=== PATIENT | male | born 1950 | race Caucasian/White ===

== ENCOUNTER 2016-08-22 18:13 | Inpatient (IN) ==
[2016-08-22] MEDS: 0.9 % Sodium Chloride 1,000 ML IVC SCH (22:38)
[2016-08-23] MEDS: Nicotine 14 MG PATCH.TD24 TD SCH ×2 (00:50→08:57)
[2016-08-23 05:43] LABS: Basophils # 0.1 K/mcL (0.0-0.2); Basophils % 0.9 %; Eosinophils # 0.6 K/mcL (0.0-0.6); Eosinophils % 6.8 %; Hematocrit 40.3 % (37.5-50.1); Hemoglobin 13.3 g/dL (12.9-16.9); Immature Granulocytes % 0.2 % (0-4); Lymphocytes # 2.7 K/mcL (0.6-4.6); Lymphocytes % 32.1 %; Mean Corpuscular Hemoglobin 30.7 pg (28.0-33.3); Mean Corpuscular Volume 93.1 fL (83.0-100.0); Mean Platelet Volume 9.5 fL (9.4-12.4); Monocytes # 0.9 K/mcL (0.0-1.3); Monocytes % 10.1 %; Neutrophils # 4.2 K/mcL (1.6-8.9); Platelet Count 224 K/mcL (140-400); Red Blood Count 4.33 M/mcL (4.19-5.50); Red Cell Distribution Width 14.5 % (11.5-14.5); Segmented Neutrophils % 49.9 %
[2016-08-23 05:57] LABS: Calcium 9.1 mg/dL (8.6-10.8); Potassium 4.2 mEq/L (3.5-4.5)
--- NOTE | 2016-08-23 07:32 | Vascular/Endovas Progress Note ---
Date of Encounter: 08/23/16 Time of Encounter: 07:29 - Assessment and plan (1) PAD (peripheral artery disease) Current Visit: Yes Status: Acute Exacerbation of left lower extremity symptoms to the point that he has lifestyle limiting claudication. Patient is admitted for revascularization of left lower extremity. (2) Tobacco abuse Current Visit: Yes Status: Chronic The patient is undergoing medical treatment for tobacco abuse (3) CAD (coronary artery disease) Current Visit: Yes Status: Chronic The patient has history of coronary artery disease. He has had a previous DE. He has had noninvasive testing as well as stress testing demonstrating a reduced ejection fraction of approximately 39% Qualifiers: Coronary Disease-Associated Artery/Lesion type: [place] artery [place] vs. transplanted heart: [place] heart Associated angina: without angina Qualified Code(s): I25.10 - Atherosclerotic heart disease of [place] coronary artery without angina pectoris - Subjective Interval history: Pepe Ch is a 66-year-old white male who was admitted last night for preoperative intravenous hydration. The patient has stage III to stage IV chronic kidney disease. The patient has severe lifestyle limiting claudication of the left lower extremity secondary to popliteal artery disease. He is being admitted for revascularization today. The patient had undergone a redo left hip replacement at an outside hospital in [place]. There were some type of perioperative complication and he was taken back to surgery as an emergency and had a emergent femoral-femoral bypass graft from the right to the left some years ago. Subsequent to this he is developed significant claudication in his leg. He was evaluated by myself via the outpatient clinic earlier this year. The reader of this note is recommended to review those notes in eCW which constituted his history and physical. As a brief summary has abnormal imaging studies an abnormal noninvasive testing. He now comes for revascularization of left lower extremity. The patient will undergo a formal exploration of left groin and an attempt will be made to perform an intraoperative endovascular intervention for the popliteal artery occlusion. If this is not successful we will then proceed on immediately to perform a left femoral to popliteal artery bypass graft. The patient is where the potential risks and benefits as well as palpitations and alternatives to this procedure. The patient wishes to proceed with the surgery as outlined. Vital Signs, Last 4 Hours Temp Pulse Resp BP Pulse Ox 08/23/16 07:09 97.9 F 63 14 106/64 98 - Physical Examination General: Present: Conversant, No Apparent Distress HEENT: Present: Normocephaly Neck: Absent: JVD Neuro: Present: Alert and responsive, No focal deficits noted Skin: Present: No rashes noted on visualized skin Results 08/23/16 04:18 08/23/16 04:18 Lab Results, Last 24 hours 08/23/16 08/23/16 04:18 04:18 WBC 8.5 Hgb 13.3 Hct 40.3 Plt Count 224 Sodium 141 Potassium 4.2 Chloride 108 Carbon Dioxide 27 BUN 26 Creatinine 1.98 H Glucose 85 Calcium 9.1 Consult Discharge Plan - Plan Referrals: Ghassan Medina, BIG DATA ENGINEER [Primary Care Provider] -
[2016-08-23] MEDS: Spironolactone 25 MG TABLET PO SCH (08:58)
[2016-08-23] MEDS: amLODIPine 5 MG TABLET PO SCH (08:58)
[2016-08-23] MEDS ORDERED: *HR* Acetylcysteine 20% 600 MG/3 ML ORAL SYRINGE PO SCH (09:00)
[2016-08-23] MEDS ORDERED: Nicotine 14 MG PATCH.TD24 TD SCH (09:00)
[2016-08-23] MEDS ORDERED: *HR* Etomidate 40 MG/20 ML VIAL IVP ONE (09:11)
[2016-08-23] MEDS ORDERED: Lidocaine -MPF 2% 2 ML VIAL ONE ×2 (09:11→13:28)
[2016-08-23] MEDS ORDERED: Ondansetron 4 MG/2 ML VIAL ONE ×2 (09:13→21:08)
[2016-08-23] MEDS ORDERED: Dexamethasone 4 MG/ML VIAL ONE (09:13)
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
[2016-08-23] MEDS ORDERED: *HR* FentaNYL (PF) 100 MCG/2 ML VIAL ONE ×3 (09:44→14:29)
[2016-08-23] MEDS: 0.9 % Sodium Chloride 1,000 ML IVC SCH (11:16)
[2016-08-23] MEDS ORDERED: ceFAZolin 2,000 MG in D5% in Water 100 ML IVPB ONE (12:00)
[2016-08-23] MEDS ORDERED: Heparin 1,000 UNITS/500 mL NS 1,000 ML ONE (12:46)
[2016-08-23] MEDS ORDERED: Heparin 1,000 UNITS/500 mL NS 500 ML ONE (13:01)
[2016-08-23] MEDS ORDERED: *HR* Rocuronium Bromide 50 MG/5 ML VIAL ONE (13:03)
[2016-08-23] MEDS ORDERED: *HR* Midazolam HCl 2 MG/2 ML VIAL ONE (13:05)
[2016-08-23] MEDS ORDERED: *HR* Phenylephrine 10 MG/ML VIAL ONE (13:22)
[2016-08-23] MEDS ORDERED: *HR* Heparin 5,000 UNIT/ML VIAL ONE ×2 (14:09→16:58)
[2016-08-23] MEDS ORDERED: *HR* HYDROmorphone 2 MG/ML SYRINGE ONE (14:54)
[2016-08-23] MEDS ORDERED: Acetaminophen IV 1,000 MG/100 ML INFUS..BTL IVPB ONE (19:57)
--- NOTE | 2016-08-23 20:09 | Electrocardiograph Report ---
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
--- NOTE | 2016-08-23 20:22 | Operative Note ---
Date of procedure: 08/23/16 Pre-op diagnosis: PAD/life style limiting claudication Post-op diagnosis: same Procedure: left leg angiogram left femoral-TibioPeroneal Trunk bypass with 6 mm PTFE Distaflo left TibioPeroneal trunk endarterecetomy left posterior tibial endarterectomy left posterior tibial patch angioplasty with left greater saphenous vein Complications: none Anesthesia: GETA Surgeon: Sheldon Wolf Estimated blood loss (cc): 300 Specimen: none Condition: stable Disposition: PACU Procedure in Detail: History Pepe Ch is a 66-year-old white male who was seen for severe left lower extremity claudication. Patient had abnormal physical exam with no palpable pulses beyond the groin and abnormal duplex scan. A CT angiogram was obtained which demonstrated occlusion of the popliteal artery. The posterior tibial artery appeared to be the dominant runoff. Of note the patient is status post a right to left femoral-femoral bypass graft. This was performed in [place] as an emergency after it undergone a redo left hip replacement and there is some type of intraoperative trauma and occlusion requiring emergency revascularization. Procedure After informed consent was obtained the patient was taken to the operating room. General endotracheal anesthesia was established with arterial line pressure monitoring. The abdomen groin and left lower extremity were then sterilely prepped and draped. A timeout protocol was observed. Dissection was then made of the left groin through the previous incision from his femoral- femoral bypass graft. Dissection was carried down to reveal and expose the femoral anastomotic area. An 18 H needle was then used to puncture the cord of the left femoral anastomosis. A Glidewire was then inserted and this was followed by a 5 [place] sheath and dilator. An intraoperative angiogram was then performed of the left lower extremity. Contrast was injected both through the 5 [place] sheath and then through the tip of a 65 cm long glide catheter which was placed in the above-knee popliteal artery. These images demonstrated an occlusion that appeared chronic of the popliteal artery. In addition however and in more detail and CT scan revealed there is also occlusion of the tibial peroneal trunk and anterior tibial artery. There was reconstitution of the posterior tibial artery and then a small and what appeared to be diseased peroneal artery as well. Attempts at passing a variety of wires through this chronic occlusion unsuccessful. Therefore an endovascular solution to the patient's problem was abandoned. Attention was then directed to direct revascularization. Dissection was then made in the [id number] popliteal artery to expose the below the knee popliteal artery and tibial peroneal trunk and the tibial bifurcation. This was a very tedious and long dissection. There is also a tremendous inflammatory response present with marked adherence of the surrounding veins to the arteries and a loss of all normal anatomic planes through this area. This led to a very tedious dissection. A number of crossing veins needed to be divided in order to expose the vessel which was difficult to do as the vessel was poorly mobile. Eventually the dissection was accomplished. Selective control was obtained of the peroneal and posterior tibial artery at the tibial bifurcation area. Heparin was administered in a dose of 5000 units. After a three-minute delay and arteriotomy was performed over the tibial peroneal trunk. This was then expanded with an 11 blade knife and Varela scissors. Evaluation of the area revealed significant plaque formation and occlusion. Therefore a formal endarterectomy was necessary of the tibial peroneal trunk including the orifice ease of the peroneal and posterior tibial arteries. After the endarterectomy was performed a bypass graft was created. A 6 mm PTFE Distaflo graft was selected. The length of the Distaflo fluted and accommodated the area of the tibial peroneal trunk endarterectomy. Therefore this fluted and of the graft with service in angioplasty site over the endarterectomized vessel. The tibial peroneal trunk anastomosis was then performed using 6-0 Prolene suture. After this was accomplished the graft which had been previously tunneled in a subsartorial location was anastomosis end of graft to side of the femoral would of the femoral-femoral bypass graft on the left side. Again this was performed with 6-0 Prolene suture. After appropriate backbleeding and flushing the graft was opened. The graft was pulsatile but no significant change was noted in the tibial circulation. Therefore further dissection was made of the tibial vessels distally. This was again a very tedious dissection due to the inflammatory changes. As the angiogram had demonstrated that the posterior tibial artery was the dominant flow attention was directed to the dissecting this vessel. The vessel was then dissected for a length of approximately 8 cm. Controls obtained of the vessel and its branches. The posterior tibial artery was then opened with 11 blade knife and Varela scissors. This was carried up to the edge of the anastomosis of the bypass graft. Residual atherosclerotic disease was identified. Then therefore a second isolated endarterectomy was performed of the left posterior tibial artery. This was performed to the proximal aspect of the vessel. After this was accomplished a 3 [place] Rin catheter was passed retrograde to ensure that it wouldn't easily pass into the graft and then the graft was released to demonstrate that there was pulsatile flow into the posterior tibial. With this assured a piece of greater saphenous vein was then harvested from the calf incision. He was then used as a patch angioplasty over the endarterectomized area of the proximal posterior tibial artery. This was sewn into position using 6-0 Prolene suture. After appropriate backbleeding and flushing the graft was then reopened and pulsatile flow was established and demonstrated into the posterior tibial artery. Strong biphasic Doppler signals identified at the ankle level with marked loss of signal with compression of the graft and anabaptism of a strong biphasic signal with the graft being open. This then reassured that the bypass graft was patent and functioning. The wounds were then irrigated and hemostasis achieved. The wounds were then closed in layers using absorbable suture. Dry sterile dressings were applied. The patient was extubated in the operating room. He was taken from the operating room to the recovery room in stable condition.
[2016-08-23] MEDS ORDERED: *HR* Labetalol 20 MG/4 ML SYRINGE IVP ONE (20:36)
[2016-08-23] MEDS: *HR* Labetalol 20 MG/4 ML SYRINGE IVP PRN ×2 (20:40→21:03)
[2016-08-23] MEDS: *HR* HYDROmorphone (PF) 1 MG/ML SYRINGE IVP PRN ×2 (20:52→21:04)
[2016-08-23] MEDS ORDERED: Ondansetron 4 MG/2 ML VIAL IVP ONE (21:07)
--- NOTE | 2016-08-23 22:16 | Anesthesia Evaluation Post Op ---
Date of Encounter: 08/23/16 Time of Encounter: 21:00 - Vital Signs Vital Signs: Vital Signs/O2 Sat/Glucose, Most Current Temp Pulse Resp BP Pulse Ox 08/23/16 21:37 97.9 F 84 14 153/75 94 08/23/16 21:27 97.8 F 80 14 156/76 97 08/23/16 21:17 73 16 161/79 96 08/23/16 21:07 78 14 162/77 96 08/23/16 20:57 98.6 F 84 18 173/83 95 08/23/16 20:47 80 22 165/110 93 08/23/16 20:37 117 22 172/107 100 08/23/16 20:27 98.1 F 90 18 189/131 95 - Lungs Lungs: Clear Ascult./Percussion - Airway Airway: Non-obstructed - Cardiovascular Regular Rate - Mental Status Mental Status: Alert & Oriented, Answers Appropriately - Pain Pain Scale: 1 - Nausea Vomiting Nausea Vomiting: Not Present - Hydration Hydration: Ice chips - Discharge PostOp Status: Transfer Patient to floor
[2016-08-23] MEDS ORDERED: Ondansetron 4 MG/2 ML VIAL IVP PRN (23:13)
[2016-08-23] MEDS ORDERED: *HR* OxyCODONE/APAP 5/325 TABLET PO PRN ×2 (23:14→23:15)
[2016-08-24] MEDS: Spironolactone 25 MG TABLET PO SCH ×4 (00:20→21:52)
[2016-08-24] MEDS: amLODIPine 5 MG TABLET PO SCH ×4 (00:20→21:52)
[2016-08-24] MEDS ORDERED: Acetaminophen 325 MG TABLET PO PRN (03:55)
[2016-08-24] MEDS ORDERED: Nitroglycerin 0.4 MG TAB.SUBL SL PRN (03:55)
[2016-08-24] MEDS ORDERED: *HR* Morphine 2 MG/ML SYRINGE IVP PRN ×2 (03:55)
[2016-08-24] MEDS ORDERED: Naloxone 0.4 MG/ML INJ IVP PRN (03:55)
[2016-08-24] MEDS ORDERED: *HR* HYDROcodone/Acet 5/325 mg TABLET PO PRN (03:55)
[2016-08-24] MEDS: *HR* Acetylcysteine 20% 600 MG/3 ML ORAL SYRINGE PO SCH ×2 (04:46→21:52)
[2016-08-24] MEDS: ceFAZolin 2,000 MG in D5% in Water 100 ML IVPB SCH ×3 (04:47→19:32)
[2016-08-24 05:38] LABS: Basophils % 0.1 %; Immature Granulocytes % 0.5 % (0-4); Mean Corpuscular HGB Conc 32.8 g/dL (31.6-35.5); Mean Corpuscular Hemoglobin 30.1 pg (28.0-33.3); Mean Corpuscular Volume 91.7 fL (83.0-100.0); Mean Platelet Volume 9.4 fL (9.4-12.4); Monocytes # 1.3 K/mcL (0.0-1.3); Monocytes % 9.3 %; Platelet Count 206 K/mcL (140-400); Red Blood Count 3.49 M/mcL (4.19-5.50); Red Cell Distribution Width 14.3 % (11.5-14.5); Segmented Neutrophils % 83.1 %
[2016-08-24 05:41] LABS: Hemoglobin 10.5 g/dL (12.9-16.9); Neutrophils # 11.5 K/mcL (1.6-8.9)
[2016-08-24 05:58] LABS: Calcium 8.5 mg/dL (8.6-10.8); Potassium 4.5 mEq/L (3.5-4.5)
--- NOTE | 2016-08-24 08:41 | Vascular/Endovas Progress Note ---
Date of Encounter: 08/24/16 Time of Encounter: 08:36 - Assessment and plan (1) PAD (peripheral artery disease) Current Visit: Yes Status: Acute Exacerbation of left lower extremity symptoms to the point that he has lifestyle limiting claudication. Patient is admitted for revascularization of left lower extremity. Patent left lower extremity bypass graft. Patient will need rehabilitative consultations which we ordered today. Patient also needed a walker. I anticipate the patient will not be ready for discharge today. (2) Tobacco abuse Current Visit: Yes Status: Chronic The patient is undergoing medical treatment for tobacco abuse (3) CAD (coronary artery disease) Current Visit: Yes Status: Chronic The patient has history of coronary artery disease. He has had a previous [place]. He has had noninvasive testing as well as stress testing demonstrating a reduced ejection fraction of approximately 39% Qualifiers: Coronary Disease-Associated Artery/Lesion type: [place] artery [place] vs. transplanted heart: [place] heart Associated angina: without angina Qualified Code(s): I25.10 - Atherosclerotic heart disease of [place] coronary artery without angina pectoris - Subjective Interval history: Mr. Ch is postoperative day #1 from a extensive left lower extremity reconstruction with bypass grafting and endarterectomy. The patient has no significant complaints this morning. He has ongoing issues with orthopedic concerns and has problems with his right lower extremity which limits his mobility. The patient does require redo right hip replacement. Vital Signs, Last 4 Hours Temp Pulse Resp BP Pulse Ox 08/24/16 07:45 98.1 F 82 17 126/89 98 - Physical Examination General: Present: Conversant, No Apparent Distress HEENT: Present: Atraumatic Cardiac: Present: Reg Rate and Rhythm Vascular: Present: Surgical incisions (Surgical incisions are clean and dry and covered with dressings.), Other (Patient has Doppler signals at the left posterior tibial and peroneal arteries) Results 08/24/16 05:15 08/24/16 05:15 Lab Results, Last 24 hours 08/24/16 08/24/16 05:15 05:15 WBC 13.8 H D Hgb 10.5 L D Hct 32.0 L Plt Count 206 Sodium 137 Potassium 4.5 Chloride 108 Carbon Dioxide 24 BUN 23 Creatinine 1.79 H Glucose 123 H Calcium 8.5 L Consult Discharge Plan - Plan Referrals: Ghassan Medina, NEIDA [Primary Care Provider] - 08/31/16 2:00 pm () Sheldon Wolf MD [Partnered Physician] - 09/12/16 8:45 am (This appointment is scheduled for Lisa )
[2016-08-24] MEDS: *HR* HYDROcodone/Acet 5/325 mg TABLET PO PRN ×4 (11:41→23:44)
[2016-08-24] MEDS: Nicotine 14 MG PATCH.TD24 TD SCH (12:51)
[2016-08-24] MEDS: Ondansetron 4 MG/2 ML VIAL IVP PRN (19:33)
[2016-08-24] MEDS ORDERED: rOPINIRole 0.25 MG TABLET PO SCH (21:00)
[2016-08-25] MEDS: *HR* HYDROcodone/Acet 5/325 mg TABLET PO PRN ×3 (04:23→12:25)
[2016-08-25] MEDS: amLODIPine 5 MG TABLET PO SCH (08:07)
[2016-08-25] MEDS: Spironolactone 25 MG TABLET PO SCH (08:07)
[2016-08-25] MEDS: Nicotine 14 MG PATCH.TD24 TD SCH (08:08)
[2016-08-25 11:10] VITALS: BP 120/83
--- NOTE | 2016-08-25 11:41 | Physician Discharge Referral ---
Home Health/Hosp Referral Info Attending Provider: Dr Wolf Provider in Charge Post Discharge: PCP - Diagnosis (1) PAD (peripheral artery disease) Priority: Primary Status: Acute (2) Tobacco abuse Priority: Secondary Status: Chronic (3) CAD (coronary artery disease) Priority: Secondary Status: Chronic (4) DJD (degenerative joint disease) of pelvis Priority: Secondary Status: Chronic - Respiratory Orders Smoking Cessation: Smoking cessation has been advised. For more information, call the [place] Tobacco Quit Line at 6-998-IDGE-NOW. 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 He is status post previous hip replacements. He has had significant impairment in his mobility and will eventually require repeat hip surgery.) - Transfer Medications Prescriptions: HYDROcodone/Acet 5/325 mg [W[place] 5-325 mg] 1 tab PO Q6H PRN #30 tab PRN Reason: Moderate Pain rOPINIRole [Requip] 0.25 mg PO HS #30 tab Home Medications: Spironolactone [Aldactone] 25 mg PO BID 08/22/16 [History] amLODIPine [Norvasc] 5 mg PO BID 08/22/16 [History] Clopidogrel [Plavix] 75 mg PO DAILY tab 08/25/16 [Rx] HYDROcodone/Acet 5/325 mg [[place] 5-325 mg] 1 tab PO Q6H PRN #30 tab 08/25/16 [Rx ] Nicotine Patch [Nicoderm] 14 mg TD DAILY 08/25/16 [Rx] Nitroglycerin 0.4 mg SL Q5M PRN 08/25/16 [Rx] rOPINIRole [Requip] 0.25 mg PO HS #30 tab 08/25/16 [Rx] Allergies/Adverse Reactions: Allergies Penicillins Allergy (Verified 08/28/15 20:29) Rash Certification: Further, I certify that my clinical findings support that this patient is homebound (i.e. absences from home require considerable and taxing effort and are for medical reasons or uatsdin services or infrequently or short duration when for other reasons) because: Homebound Reason: Patient requires assistance of a person or device to safely leave home, Post-surgery restriction and or conditions limit ability to leave home, Leaving home requires considerable and taxing effort due to condition Attestation: My signature below is to certify that this patient is under my care and that I, or nurse practitioner, or a physician's title i assistant working with me, has a face-to -face encounter with this patient.
--- NOTE | 2016-08-25 11:45 | Discharge Summary ---
Date of Encounter: 08/25/16 Time of Encounter: 11:43 - Discharge Diagnosis (1) PAD (peripheral artery disease) Priority: Primary Status: Acute Comments: Patient has severe left lower extremity symptoms with profound left leg claudication. Patient had a CT Lynette Alf preoperatively which indicated a popliteal artery occlusion. However at the time of surgery and intraoperative antrum was performed in an attempt to try to perform an endovascular intervention with balloon angioplasty of the popliteal. At that time the below the knee arterial lesions were found to be much more significant and severe. Not only was the below the knee popliteal occluded but as was also the tibial peroneal trunk and the anterior tibial artery. Peroneal artery was also diseased and the primary runoff was through the posterior tibial artery. Therefore he underwent a rather complex and tedious procedure in an attempt to try to improve the perfusion to the left lower extremity. (2) Tobacco abuse Priority: Secondary Status: Chronic Comments: Patient is using nicotine patches (3) CAD (coronary artery disease) Priority: Secondary Status: Chronic Comments: Patient is under medical treatment for his coronary artery disease and he did not have any periprocedural cardiac complications. Qualifiers: Coronary Disease-Associated Artery/Lesion type: [place] artery [place] vs. transplanted heart: [place] heart Associated angina: without angina Qualified Code(s): I25.10 - Atherosclerotic heart disease of [place] coronary artery without angina pectoris (4) DJD (degenerative joint disease) of pelvis Priority: Secondary Status: Chronic Comments: Patient has significant bilateral lower extremity degenerative joint disease primarily at the hip level. He is as having significant problems with the right hip and has difficulties ambulating. He had declined recommendation for [facility] placement for further rehabilitation. The patient will receive outpatient therapy with physical and occupational therapy at his home. - Discharge Medications Prescriptions: HYDROcodone/Acet 5/325 mg [[place] 5-325 mg] 1 tab PO Q6H PRN #30 tab PRN Reason: Moderate Pain rOPINIRole [Requip] 0.25 mg PO HS #30 tab Home Medications: Spironolactone [Aldactone] 25 mg PO BID 08/22/16 [History] amLODIPine [Norvasc] 5 mg PO BID 08/22/16 [History] Clopidogrel [Plavix] 75 mg PO DAILY tab 08/25/16 [Rx] HYDROcodone/Acet 5/325 mg [[place] 5-325 mg] 1 tab PO Q6H PRN #30 tab 08/25/16 [Rx ] Nicotine Patch [Nicoderm] 14 mg TD DAILY 08/25/16 [Rx] Nitroglycerin 0.4 mg SL Q5M PRN 08/25/16 [Rx] rOPINIRole [Requip] 0.25 mg PO HS #30 tab 08/25/16 [Rx] Allergies/Adverse Reactions: Allergies Penicillins Allergy (Verified 08/28/15 20:29) Rash Procedures/tests Complete & Pending: Procedures Performed prior 72 hours Category Date Time Status ECG 12 lead ECG [ECG] Routine Y 08/23/16 04:20 Completed Date of admission: 08/22/16 18:13 Primary care physician: Ghassan Medina CNP Consults: 08/24/16 08:03 Consult to Occupational Therapy [CONS] Routine Comment: Evaluate, develop and implement POC Reason for Consult: DC PLANNING Consult to Physical Therapy [CONS] Routine Comment: Evaluate, develop and implement POC Reason for Consult: DC PLANNING 08/24/16 11:08 Consult to Group Sales Coordinator [CONS] Routine Reason for SW Consult: HOME HEALTH Procedure(s) Performed: Left femoral to tibial peroneal trunk bypass graft with PTFE Left tibial peroneal trunk endarterectomy Left posterior tibial artery endarterectomy Left posterior tibial artery patch angioplasty with greater saphenous vein Left lower extremity angiogram Discharging clinician: Sheldon Wolf Anticipated date of discharge: 08/25/16 - Patient Status Disposition: Home Health Service Condition: Fair Functional capacity at discharge: uses cane/walker Overall status at discharge: patient is progressing back to baseline - Discharge Instructions Follow Up With: Ghassan Medina CNP [Primary Care Provider] - 08/31/16 2:00 pm () Sheldon Wolf MD [Partnered Physician] - 09/12/16 8:45 am (This appointment is scheduled for [place] ) Additional Instructions: Keep left lower extremity incisions dry for total of 5 days following surgery. Left lower extremity should be elevated when seated to reduce left lower extremity edema. Resume usual home medications. New prescriptions will be given for narcotics and for Requip for nocturnal leg cramps and restless leg syndrome. Patient will be given referrals for outpatient occupational therapy and physical therapy. - Diet and Activity Activity: ambulate only with your walker, as per physical therapy, increase activity as tolerated Diet: advance to your usual diet - Hospital Course Hospital course: Mr. Ch is a 66 year old male With severe lower extremity occlusive disease. CT scan underestimated the amount of disease and at the time of surgery an angiogram was performed in hopes of performing an endovascular procedure. This was not feasible and so therefore the patient ended up receiving a very complicated and complex reconstruction. The vein was inadequate and he required a synthetic graft to the tibial peroneal trunk and then a formal exploration and endarterectomy of the proximal posterior tibial artery with vein patch angioplasty. The patient had a uneventful vascular recovery with Doppler signals identified 3 at the ankle. Due to his difficulties with mobility from his degenerative joint disease the patient required an additional day of hospitalization. Recommendations for placement at an extended care facility for further rehabilitation were refused by the patient and so therefore he is going to receive home therapy. The patient was felt fit for discharge on postoperative day #2. Directions in regards to his diet and exercise and medications and wound care were given to the patient prior to discharge. - Time Spent with Patient Total time spent providing and/or coordinating discharge services: Exam Vital Signs, Last 4 Hours Temp Pulse Resp BP Pulse Ox 08/25/16 11:19 85 08/25/16 11:09 98.5 F 90 17 120/83 94 08/25/16 08:10 98 General: Present: Conversant, No Apparent Distress HEENT: Present: Atraumatic Neck: Absent: JVD Abdomen: Present: Soft Vascular: Present: Color/Temperature (Left foot is warm and pink. Patient has Doppler signals 3 at the left ankle.), Surgical incisions (Clean and dry) Skin: Present: No rashes noted on visualized skin
[2016-08-25] MEDS: Ondansetron 4 MG/2 ML VIAL IVP PRN (12:32)
== END 2016-08-25 15:30 | disposition home health service (06) | DRG 253 ==
LOC: 2NNU 18:13 → EDSTATUS 08-23 10:25
PROVIDERS: ADMIT Surgery Vascular Surgery; ATTEND Surgery Vascular Surgery

== ENCOUNTER 2020-01-14 06:12 | Inpatient (IN) ==
[~2020-01-14 06:12] MED LIST: ceFAZolin 1,000 MG, Sodium Chloride IRRigation 1,000 ML IR ONE
[2020-01-14] MEDS ORDERED: Lidocaine -MPF 2% 2 ML VIAL ONE ×2 (06:41→09:30)
[2020-01-14] MEDS ORDERED: Heparin 1,000 UNITS/500 mL 500 ML ONE (06:41)
[2020-01-14] MEDS ORDERED: Ondansetron 4 MG/2 ML VIAL ONE (06:41)
[2020-01-14] MEDS ORDERED: *HR* Rocuronium Bromide 50 MG/5 ML VIAL ONE ×2 (06:41→10:05)
[2020-01-14] MEDS ORDERED: Dexamethasone 4 MG/ML VIAL ONE (06:41)
[2020-01-14] MEDS ORDERED: *HR* Propofol 200 MG/20 ML VIAL IVP ONE (06:42)
[2020-01-14] MEDS ORDERED: *HR* Phenylephrine 10 MG/ML VIAL ONE (06:42)
[2020-01-14] MEDS ORDERED: *HR* Heparin 5,000 UNIT/ML VIAL ONE (06:42)
[2020-01-14] MEDS ORDERED: *HR* Midazolam HCl 2 MG/2 ML VIAL ONE (06:42)
[2020-01-14] MEDS ORDERED: *HR* FentaNYL (PF) 100 MCG/2 ML VIAL ONE ×2 (06:43→11:31)
[2020-01-14] MEDS ORDERED: Ringers Solution, Lactated 1,000 ML IVC SCH ×2 (06:45→07:00)
[2020-01-14] MEDS ORDERED: Ondansetron 4 MG/2 ML VIAL IVP PRN ×2 (06:53→15:19)
[2020-01-14] MEDS ORDERED: *HR* OxyCODONE Immed Rel 5 MG TABLET PO PRN (06:53)
[2020-01-14] MEDS ORDERED: Clindamycin 900 MG/50 ML 900 MG/50 ML IV.SOLN IVPB ONE (06:55)
[2020-01-14] MEDS ORDERED: Sodium Bicarbonate 150 MEQ in D5% in Water 1,000 ML IVC SCH (07:00)
[2020-01-14] MEDS ORDERED: Heparin 1,000 UNITS/500 mL 1,500 ML ONE (07:08)
[2020-01-14] MEDS ORDERED: *HR* Remifentanil 1 MG VIAL IVP ONE ×2 (07:09→11:29)
[2020-01-14] MEDS ORDERED: Lidocaine -MPF 4% 5 ML AMPUL ONE (07:13)
[2020-01-14] MEDS ORDERED: NiCARdipine 2.5 MG/10 ML Syringe IVPB ONE (07:18)
[2020-01-14] MEDS ORDERED: EPHEDrine 50 MG/ML VIAL ONE (10:18)
[2020-01-14 10:44] LABS: ABG Base Excess -2 mEq/L (-2 to 3); ABG Chloride 107 mEq/L (98-107); ABG Glucose 122 mg/dL (60-95); ABG HCO3 23 mEq/L (21-27); ABG Oxygen Saturation 100 % (95-98); ABG PCO2 40 mmHg (35-45); ABG PH 7.37 pH Units (7.32-7.45); ABG PO2 174 mmHg (85-104); ABG TCO2 24 mEq/L (20-26)
[2020-01-14] MEDS ORDERED: Heparin 1,000 UNITS/500 mL 1,000 ML ONE (11:19)
[2020-01-14] MEDS ORDERED: Sugammadex Sodium 200 MG/2 ML VIAL IV ONE (12:52)
[2020-01-14] MEDS ORDERED: *HR* Labetalol 20 MG/4 ML SYRINGE IVP ONE (13:14)
[2020-01-14] MEDS: *HR* HYDROmorphone PF 0.5 MG/0.5 ML SYRINGE IVP PRN ×3 (14:02→14:34)
[2020-01-14] MEDS ORDERED: Acetaminophen 325 MG TABLET PO PRN (15:19)
[2020-01-14] MEDS ORDERED: *HR* Labetalol 20 MG/4 ML SYRINGE IVP PRN (15:19)
[2020-01-14] MEDS ORDERED: Naloxone 0.4 MG/ML INJ IVP PRN (15:19)
[2020-01-14] MEDS ORDERED: *HR* HYDROcodone/Acet 5/325 mg TABLET PO PRN (15:19)
[2020-01-14] MEDS: Clindamycin 900 MG/50 ML 900 MG/50 ML IV.SOLN IVPB SCH ×2 (17:21→23:43)
[2020-01-14] MEDS: Nicotine 21 MG PATCH.TD24 TD SCH (18:34)
[2020-01-14] MEDS: amLODIPine 5 MG TABLET PO SCH (20:50)
[2020-01-14] MEDS: *HR* OxyCODONE Immed Rel 5 MG TABLET PO PRN (20:50)
[2020-01-14] MEDS ORDERED: *HR* Acetylcysteine 20% 600 MG/3 ML ORAL SYRINGE PO SCH (21:00)
[2020-01-15 02:43] LABS: Basophils % 0.1 %; Hematocrit 28.8 % (37.5-50.1); Immature Granulocytes % 0.5 % (0-4); Lymphocytes # 0.8 K/mcL (0.6-4.6); Lymphocytes % 5.6 %; Mean Corpuscular HGB Conc 31.3 g/dL (31.6-35.5); Mean Corpuscular Hemoglobin 27.8 pg (28.0-33.3); Mean Corpuscular Volume 88.9 fL (83.0-100.0); Mean Platelet Volume 9.7 fL (9.4-12.4); Monocytes % 7.7 %; Platelet Count 220 K/mcL (140-400); Red Blood Count 3.24 M/mcL (4.19-5.50); Segmented Neutrophils % 86.1 %
[2020-01-15 02:46] LABS: Neutrophils # 11.5 K/mcL (1.6-8.9); White Blood Count 13.4 K/mcL (4.3-11.1)
[2020-01-15 03:05] LABS: Calcium 8.5 mg/dL (8.6-10.3); Potassium 4.4 mEq/L (3.5-5.1)
[2020-01-15] MEDS: Nicotine 21 MG PATCH.TD24 TD SCH (08:23)
[2020-01-15] MEDS: amLODIPine 5 MG TABLET PO SCH (08:23)
[2020-01-15] MEDS: Clindamycin 900 MG/50 ML 900 MG/50 ML IV.SOLN IVPB SCH (08:25)
[2020-01-15] MEDS ORDERED: Aspirin Enteric Coated 81 MG Tablet PO SCH (09:00)
[2020-01-15 10:49] VITALS: BP 138/84
[2020-01-15] MEDS: *HR* OxyCODONE Immed Rel 5 MG TABLET PO PRN (11:30)
[2020-01-15] MEDS ORDERED: FLU Vac QV 20-21 (6Month+)/PF 0.5 ML SYRINGE IM ONE (12:05)
== END 2020-01-15 15:43 | disposition home or self-care (01) | DRG 269 ==
LOC: SAMDAY 06:12 → 2NNU 15:16
PROVIDERS: ADMIT Surgery Vascular Surgery; ATTEND Surgery Vascular Surgery